=== PATIENT | male | born 1990 | race Caucasian/White ===

== ENCOUNTER 2022-03-20 14:26 | Emergency (ER) | payer OTHER, BC ==
[~2022-03-20] VITALS: Ht 180.3 cm; Wt 113.3 kg
--- NOTE | 2022-03-20 14:49 | ED Integumentary General ---
General Stated Complaint: WC RT FINGER LAC/CRUSH History of Present Illness Date Seen by Provider: Mar 20, 2022 Time Seen by Provider: 14:49 Initial Comments 31-year-old male presents with injury to that palmar aspect of the right middle finger. Patient was at work when he received a crush injury and laceration. Patient reports his last tetanus was about 6 years ago. Patient denies any other injury. He does have full range of motion of the finger. Allergies and Home Medications Allergies Coded Allergies: No Known Drug Allergies (Unverified , 03/20/22) Patient Home Medication List Home Medication List Reviewed: Yes Review of Systems Review of Systems Constitutional: no symptoms reported EENTM: no symptoms reported Respiratory: no symptoms reported Cardiovascular: no symptoms reported Gastrointestinal: no symptoms reported Genitourinary: no symptoms reported Musculoskeletal: see HPI Skin: see HPI Psychiatric/Neurological: No Symptoms Reported Endocrine: No Symptoms Reported Physical Exam Vital Signs Capillary Refill : General Appearance: WD/WN, no apparent distress HEENT: PERRL/EOMI Respiratory: lungs clear, normal breath sounds Gastrointestinal: soft; No distended, No tenderness Extremities: normal range of motion, normal capillary refill Skin: other (Complex laceration right middle finger) Procedures/Interventions Wound Location: Upper Extremities Other Wound Location Right middle finger Wound Length (cm): 3 Wound's Depth, Shape: irregular, contused tissue Wound Explored: no foreign body removed Betadine Prep?: Yes Anesthesia: 1% Lidocaine Volume Anesthetic (ccs): 6 Wound Debrided: minimal Suture: Ethlion Suture Size: 4-0 Number of Sutures: 7 Sterile Dressing Applied?: Yes Progress Patient tolerated well with no immediate complications Progress/Results/Core Measures Results/Orders My Orders Orders - ANTONIO CHILDS DO Finger(S) (03/20/22 14:52) Progress Progress Note : Progress Note Patient with irregular laceration right middle finger. Patient repaired with madison tures tolerated well with no immediate complications Diagnostic Imaging Diagonstic Imaging: Xray Comments Date of Exam:03/20/22 FINGER(S) HISTORY: Trauma to the right middle finger, laceration. TECHNIQUE: Frontal view of the hand. Frontal, oblique, lateral views of the right 3rd finger COMPARISON: None FINDINGS: Soft tissue laceration at the radial and dorsal sides of the right 3rd finger middle phalanx. No acute fracture is seen in the right hand. Alignment is normal. Joint spaces are preserved. No acute osseous abnormality is seen. There is soft tissue swelling. No radiopaque foreign body is seen. IMPRESSION: 1. Soft tissue laceration of the right 3rd finger with no acute osseous abnormality or radiopaque foreign body seen. Reviewed: Reviewed by Me, Reviewed/Discussed Departure Impression Primary Impression: Laceration of right middle finger w/o foreign body w/o damage to nail Qualified Codes: S61.212A - Laceration without foreign body of right middle finger without damage to nail, initial encounter Disposition: HOME, SELF-CARE Condition: Stable Departure-Patient Inst. Referrals: NO,LOCAL PHYSICIAN (PCP/Family) Primary Care Physician Patient Instructions: Laceration Repair With Stitches ED Add. Discharge Instructions: Keep clean with warm soapy You may use a thin layer of Vaseline after 24 hours Do not submerge in water for 24 to 36 hours Please keep clean dressing on and glove while working ANTONIO CHILDS DO Mar 20, 2022 14:49
--- NOTE | 2022-03-20 15:17 | Diagnostic Imaging Report ---
HISTORY: Trauma to the right middle finger, laceration. TECHNIQUE: Frontal view of the hand. Frontal, oblique, lateral views of the right 3rd finger COMPARISON: None FINDINGS: Soft tissue laceration at the radial and dorsal sides of the right 3rd finger middle phalanx. No acute fracture is seen in the right hand. Alignment is normal. Joint spaces are preserved. No acute osseous abnormality is seen. There is soft tissue swelling. No radiopaque foreign body is seen. IMPRESSION: 1. Soft tissue laceration of the right 3rd finger with no acute osseous abnormality or radiopaque foreign body seen. Dictated by: Dictated on workstation # [id number]
[2022-03-20 16:04] VITALS: BP 161/97
== END 2022-03-20 16:04 | disposition home or self-care (01) ==
LOC: ER FS 14:28
DX: S61.212A Laceration without foreign body of right middle finger without damage to nail, initial encounter (principal); Z28.310 Unvaccinated for COVID-19; X58.XXXA Exposure to other specified factors, initial encounter; Y92.59 Other trade areas as the place of occurrence of the external cause; Y99.0 Civilian activity done for income or pay
CPT/HCPCS: 12002; 73140